=== PATIENT | male | born 1950 | race Caucasian/White ===

== ENCOUNTER 2019-01-06 01:51 | Emergency (ER) | payer MEDICARE, OTHER ==
[~2019-01-06] VITALS: Ht 167.6 cm; Wt 68.0 kg
[~2019-01-06 01:51] MED LIST: HYDR1TAB94; Veetids 500500 MG PO
[2019-01-06] MEDS ORDERED: ACET500 (02:09)
[2019-01-06] MEDS ORDERED: IBUP400 PO (02:09)
[2019-01-06] MEDS ORDERED: GABA300 PO (02:10)
[2019-01-06 03:16] LABS: BASOPHILS ABSOLUTE AUTO 0.04 K/mm3 (0.00-0.23); BASOPHILS PERCENT AUTO 0 % (0-2); EOSINOPHILS PERCENT AUTO 1 % (0-6); Hematocrit 32.9 % (37.0-53.0); IMMATURE GRAN ABSOLUTE AUTO 0.05 K/mm3 (0.00-0.10); IMMATURE GRAN PERCENT AUTO 0 % (0-1); LYMPHOCYTES ABSOLUTE AUTO 0.83 K/mm3 (0.84-5.20); LYMPHOCYTES PERCENT AUTO 7 % (21-46); MONOCYTES ABSOLUTE AUTO 0.82 K/mm3 (0.16-1.47); MONOCYTES PERCENT AUTO 7 % (4-13); Mean Corpuscular HGB 31.4 pg (26.0-34.0); Mean Corpuscular HGB Conc 33.4 g/dL (31.5-36.5); Mean Corpuscular Volume 94 fL (80-100); Mean Platelet Volume 11.9 fL (9.1-12.4); NEUTROPHILS ABSOLUTE AUTO 10.48 K/mm3 (1.96-9.15); NEUTROPHILS PERCENT AUTO 85 % (41-73); Platelet Count 213 K/mm3 (150-400); RDW Coefficient Variation 12.3 % (11.7-14.2); RDW Standard Deviation 42.6 fL (35.1-46.3); White Blood Cell Count 12.32 K/mm3 (4.00-11.30)
[2019-01-06 03:19] LABS: Influenza A Negative (NEGATIVE); Influenza B Negative (NEGATIVE)
[2019-01-06 03:36] LABS: Alanine Aminotransfer (ALT/SGP 34 U/L (12-78); Albumin, Blood 3.9 g/dL (3.4-5.0); Alk Phos 73 U/L (50-136); Anion Gap 9 mmol/L (6-16); Aspartate Aminotrans (AST/SGOT 30 U/L (12-37); Bilirubin, Total 0.5 mg/dL (0.1-1.0); Blood Urea Nitrogen 24 mg/dL (8-24); Bun/Creatinine Ratio 20.5 (12.0-20.0); CO2, Blood 22 mmol/L (21-32); Calcium, Blood 8.6 mg/dL (8.5-10.1); Chloride, Blood 108 mmol/L (98-108); Creatinine, Blood 1.17 mg/dL (0.60-1.20); Globulin, Blood 4.1 g/dL (2.2-4.0); Glomerular Filtration Rate >60 (60-); Glucose, Blood 114 mg/dL (70-99); Potassium, Blood 3.5 mmol/L (3.5-5.5); Sodium, Blood 139 mmol/L (136-145); Troponin I <0.015 ng/mL (0.000-0.040)
[2019-01-06] MEDS ORDERED: Doxycycline Hy100 MG PO (03:41)
== END 2019-01-06 04:15 | disposition home or self-care (01) ==
LOC: ER 01:51
PROVIDERS: Emergency Medicine
DX: J18.9 Pneumonia, unspecified organism (principal); Z88.8 Allergy status to other drugs, medicaments and biological substances; Z79.899 Other long term (current) drug therapy
CPT/HCPCS: 36415; 71046; 80053; 84484; 85025; 87804; 93005; 93010; 94640; 96360; 99284-25; J7030

== ENCOUNTER → 2022-12-12 | Outpatient (CLI) | payer MEDICARE ==
[~2022-12-12] MED LIST changes: +ACET500; +Doxycycline Hy100 MG PO; +GABA300 PO; +IBUP400 PO
== END | disposition home or self-care (01) ==
LOC: LAB SHORT 15:26 → LAB 15:26
DX: L01.01 Non-bullous impetigo (principal)
CPT/HCPCS: 87070; 87077; 87186; 87205

== ENCOUNTER → 2023-03-16 | Outpatient (CLI) | payer MEDICARE ==
[2023-03-16 18:54] LABS: BASOPHILS PERCENT AUTO 1 % (0-2); EOSINOPHILS ABSOLUTE AUTO 2.13 K/mm3 (0.00-0.68); EOSINOPHILS PERCENT AUTO 24 % (0-6); Hematocrit 33.9 % (37.0-53.0); Hemoglobin 11.5 g/dL (13.5-17.5); IMMATURE GRAN ABSOLUTE AUTO 0.02 K/mm3 (0.00-0.10); IMMATURE GRAN PERCENT AUTO 0 % (0-1); LYMPHOCYTES ABSOLUTE AUTO 1.52 K/mm3 (0.84-5.20); LYMPHOCYTES PERCENT AUTO 17 % (21-46); MONOCYTES ABSOLUTE AUTO 0.46 K/mm3 (0.16-1.47); MONOCYTES PERCENT AUTO 5 % (4-13); Mean Corpuscular HGB 31.8 pg (26.0-34.0); Mean Corpuscular HGB Conc 33.9 g/dL (31.5-36.5); Mean Corpuscular Volume 94 fL (80-100); Mean Platelet Volume 12.7 fL (9.1-12.4); NEUTROPHILS PERCENT AUTO 52 % (41-73); Platelet Count 213 K/mm3 (150-400); RDW Standard Deviation 41.1 fL (35.1-46.3); Red Blood Cell Count 3.62 M/mm3 (4.30-5.90); White Blood Cell Count 8.83 K/mm3 (4.00-11.30)
[2023-03-16 18:56] LABS: Alanine Aminotransfer (ALT/SGP 40 U/L (12-78); Albumin, Blood 4.1 g/dL (3.4-5.0); Albumin/Globulin Ratio 1.2 (0.8-1.8); Alk Phos 65 U/L (50-136); Anion Gap 6 mmol/L (6-16); Aspartate Aminotrans (AST/SGOT 33 U/L (12-37); Bilirubin, Total 0.3 mg/dL (0.1-1.0); Blood Urea Nitrogen 24 mg/dL (8-24); Bun/Creatinine Ratio 18.3 (12.0-20.0); CHOL/HDL RATIO 2.2; CO2, Blood 24 mmol/L (21-32); Calcium, Blood 9.4 mg/dL (8.5-10.1); Chloride, Blood 110 mmol/L (98-108); Cholesterol 186 mg/dL (50-200); Creatinine, Blood 1.31 mg/dL (0.60-1.20); Globulin, Blood 3.3 g/dL (2.2-4.0); Glomerular Filtration Rate 58 (60-); Glucose, Blood 97 mg/dL (70-99); HDL Cholesterol 83 mg/dL (>39); LDL/HDL RATIO 1.1; Low Density Lipoprotein Chol 92 mg/dL (0-110); Sodium, Blood 140 mmol/L (136-145); Total Protein, Blood 7.4 g/dL (6.4-8.2); Triglycerides 55 mg/dL (30-160); Very Low Density Lipoprot Chol 11 mg/dL (6-32)
== END | disposition home or self-care (01) ==
LOC: LAB SHORT 17:25 → LAB 17:25
PROVIDERS: Nurse Practitioner Family
DX: Z12.5 Encounter for screening for malignant neoplasm of prostate (principal); E78.5 Hyperlipidemia, unspecified; D64.9 Anemia, unspecified; R39.11 Hesitancy of micturition
CPT/HCPCS: 80053; 80061; 85025; G0103

== ENCOUNTER → 2023-04-19 | Outpatient (CLI) | payer MEDICARE ==
[2023-04-19 19:35] LABS: Percent Saturation 19.2 % (20.0-50.0)
== END ==
LOC: LAB 16:04 → LAB SHORT 16:04
PROVIDERS: Nurse Practitioner Family
DX: D64.9 Anemia, unspecified (principal)
CPT/HCPCS: 82728; 83540; 83550

== ENCOUNTER 2024-03-18 05:55 | Emergency (ER) | payer MEDICARE ==
[~2024-03-18] VITALS: Ht 167.6 cm; Wt 70.3 kg
[~2024-03-18 05:55] MED LIST changes: -ACET500; +ACET500 PO
[2024-03-18] MEDS ORDERED: HYDROCODONE-AC1 EA19 PO (06:20)
[2024-03-18] MEDS ORDERED: ATOR10 (06:20)
[2024-03-18] MEDS ORDERED: Ketorolac Tromethamine 30mg Vial IM ONE (06:45)
[2024-03-18] MEDS ORDERED: Amoxicillin 500 MG Cap PO ONE (07:25)
[2024-03-18] MEDS ORDERED: AMOX500 PO (07:28)
[2024-03-18 07:45] VITALS: BP 127/62
== END 2024-03-18 08:00 | disposition home or self-care (01) ==
LOC: ER 05:55
DX: J18.9 Pneumonia, unspecified organism (principal); Z79.899 Other long term (current) drug therapy; Z88.8 Allergy status to other drugs, medicaments and biological substances
CPT/HCPCS: 71046; 93005; 93010; 96372; 99283-25; A9270; J1885

== ENCOUNTER 2024-03-20 06:32 | Emergency (ER) | payer MEDICARE ==
[~2024-03-20] VITALS: Ht 165.1 cm; Wt 59.0 kg
[~2024-03-20 06:32] MED LIST changes: +AMOX500 PO; +ATOR10; +HYDROCODONE-AC1 EA19 PO
[2024-03-20 08:54] LABS: BASOPHILS ABSOLUTE AUTO 0.07 K/mm3 (0.00-0.23); BASOPHILS PERCENT AUTO 0 % (0-2); EOSINOPHILS ABSOLUTE AUTO 0.07 K/mm3 (0.00-0.68); EOSINOPHILS PERCENT AUTO 0 % (0-6); Hemoglobin 11.5 g/dL (13.5-17.5); IMMATURE GRAN ABSOLUTE AUTO 0.05 K/mm3 (0.00-0.10); IMMATURE GRAN PERCENT AUTO 0 % (0-1); LYMPHOCYTES ABSOLUTE AUTO 0.48 K/mm3 (0.84-5.20); LYMPHOCYTES PERCENT AUTO 3 % (21-46); MONOCYTES ABSOLUTE AUTO 0.72 K/mm3 (0.16-1.47); MONOCYTES PERCENT AUTO 5 % (4-13); Mean Corpuscular HGB 31.9 pg (26.0-34.0); Mean Corpuscular HGB Conc 33.8 g/dL (31.5-36.5); Mean Corpuscular Volume 94 fL (80-100); Mean Platelet Volume 12.1 fL (9.1-12.4); NEUTROPHILS ABSOLUTE AUTO 14.19 K/mm3 (1.96-9.15); NEUTROPHILS PERCENT AUTO 91 % (41-73); Platelet Count 214 K/mm3 (150-400); RDW Coefficient Variation 12.6 % (11.7-14.2); RDW Standard Deviation 43.6 fL (35.1-46.3); White Blood Cell Count 15.58 K/mm3 (4.00-11.30)
[2024-03-20] MEDS ORDERED: Acetaminophen 500 MG Tab PO ONE (08:55)
[2024-03-20] MEDS ORDERED: Amoxicillin 500 MG Cap PO ONE (08:55)
[2024-03-20 09:13] LABS: BAND PERCENT MAN 8 % (0-8); BASOPHILS PERCENT MAN 0 % (0-2); EOSINOPHILS PERCENT MAN 0 % (0-6); LYMPHOCYTES ABSOLUTE MAN 0.15 K/mm3 (0.84-5.20); LYMPHOCYTES PERCENT MAN 1 % (21-46); MONOCYTES ABSOLUTE MAN 0.46 K/mm3 (0.16-1.47); MONOCYTES PERCENT MAN 3 % (4-13); NEUTROPHILS ABSOLUTE MAN 14.95 K/mm3 (1.96-9.15); SEG NEUTROPHILS PERCENT MAN 88 % (41-73); TOTAL CELLS COUNTED 100
[2024-03-20 09:25] LABS: Albumin, Blood 2.9 g/dL (3.4-5.0); Albumin/Globulin Ratio 0.6 (0.8-1.8); Bilirubin, Total 0.6 mg/dL (0.1-1.0); Bun/Creatinine Ratio 17.4 (12.0-20.0); Calcium, Blood 9.2 mg/dL (8.5-10.1); Creatinine, Blood 1.38 mg/dL (0.60-1.20); Globulin, Blood 4.6 g/dL (2.2-4.0); Potassium, Blood 4.3 mmol/L (3.5-5.5); Total Protein, Blood 7.5 g/dL (6.4-8.2)
[2024-03-20] MEDS ORDERED: Zithromax250 MG PO (10:58)
[2024-03-20] MEDS ORDERED: AMOCLA875 PO (10:58)
[2024-03-20] MEDS ORDERED: Azithromycin 250 MG Tab PO ONE (11:00)
[2024-03-20 11:10] VITALS: BP 121/59
== END 2024-03-20 11:13 | disposition home or self-care (01) ==
LOC: ER 06:32
PROVIDERS: Physician Assistant
DX: J18.9 Pneumonia, unspecified organism (principal); Z79.899 Other long term (current) drug therapy; Z88.8 Allergy status to other drugs, medicaments and biological substances
CPT/HCPCS: 71046; 80053; 85025; 99283-25; A9270

== ENCOUNTER 2024-03-22 05:27 | Inpatient (IN) | payer MEDICARE ==
[~2024-03-22] VITALS: Ht 165.1 cm; Wt 60.5 kg
[~2024-03-22 05:27] MED LIST changes: +AMOCLA875 PO; +Zithromax250 MG PO
[2024-03-22] MEDS ORDERED: Ondansetron HCl 2 MG / ML 2ML Vial IV ONE (07:20)
[2024-03-22] MEDS ORDERED: NS 500 ML IV SCH (07:20)
[2024-03-22] MEDS ORDERED: Acetaminophen 500 MG Tab PO ONE (07:20)
[2024-03-22 07:23] LABS: BASOPHILS ABSOLUTE AUTO 0.05 K/mm3 (0.00-0.23); BASOPHILS PERCENT AUTO 0 % (0-2); EOSINOPHILS ABSOLUTE AUTO 0.13 K/mm3 (0.00-0.68); EOSINOPHILS PERCENT AUTO 1 % (0-6); Hematocrit 31.9 % (37.0-53.0); Hemoglobin 10.9 g/dL (13.5-17.5); IMMATURE GRAN ABSOLUTE AUTO 0.12 K/mm3 (0.00-0.10); IMMATURE GRAN PERCENT AUTO 1 % (0-1); LYMPHOCYTES ABSOLUTE AUTO 0.78 K/mm3 (0.84-5.20); LYMPHOCYTES PERCENT AUTO 5 % (21-46); MONOCYTES ABSOLUTE AUTO 1.03 K/mm3 (0.16-1.47); MONOCYTES PERCENT AUTO 6 % (4-13); Mean Corpuscular HGB 31.9 pg (26.0-34.0); Mean Corpuscular HGB Conc 34.2 g/dL (31.5-36.5); Mean Corpuscular Volume 93 fL (80-100); Mean Platelet Volume 11.8 fL (9.1-12.4); NEUTROPHILS ABSOLUTE AUTO 15.36 K/mm3 (1.96-9.15); NEUTROPHILS PERCENT AUTO 88 % (41-73); Platelet Count 262 K/mm3 (150-400); RDW Coefficient Variation 13.4 % (11.7-14.2); Red Blood Cell Count 3.42 M/mm3 (4.30-5.90); White Blood Cell Count 17.47 K/mm3 (4.00-11.30)
[2024-03-22] MEDS ORDERED: Azithromycin 500 MG in NS 250 ML IV ONE (07:35)
[2024-03-22] MEDS ORDERED: CefTRIAXone Sodium 1,000 MG in NS 50 ML IV ONE (07:35)
[2024-03-22 07:38] LABS: Albumin, Blood 2.5 g/dL (3.4-5.0); Albumin/Globulin Ratio 0.5 (0.8-1.8); Bilirubin, Total 0.5 mg/dL (0.1-1.0); Bun/Creatinine Ratio 19.3 (12.0-20.0); Calcium, Blood 9.1 mg/dL (8.5-10.1); Creatinine, Blood 1.35 mg/dL (0.60-1.20); Globulin, Blood 4.9 g/dL (2.2-4.0); Potassium, Blood 3.7 mmol/L (3.5-5.5); Total Protein, Blood 7.4 g/dL (6.4-8.2)
[2024-03-22] MEDS ORDERED: HydrALAZINE HCl 20 MG / ML 1ML Vial IV PRN (08:05)
[2024-03-22] MEDS ORDERED: Acetaminophen 325 MG TABLET PO PRN (08:05)
[2024-03-22 09:00] VITALS: BP 120/70
[2024-03-22] MEDS ORDERED: Atorvastatin 10 MG Tab PO SCH (09:00)
[2024-03-22] MEDS ORDERED: Lactobacil 2-S.Thermo-Bifido 1 1 Cap PO SCH (09:00)
[2024-03-22] MEDS ORDERED: DiphenhydrAMINE HCL 25 MG Cap PO PRN (09:45)
[2024-03-22 16:01] VITALS: BP 127/57
--- NOTE | 2024-03-22 17:52 | NUR ---
SHIFT SUMMARY PT A&OX4, AMB IND, TOLERATNG PO, VOIDING, AND DENIED PAIN. PT TEMP ELEVATED, MEDICATED W/ TYLENOL AND TEMP IMPROVED. CALL LIGHT WITHIN REACH AND PT ABLE TO MAKE NEEDS KNOWN.
[2024-03-22 20:46] VITALS: BP 139/64
[2024-03-22] MEDS ORDERED: Famotidine 20 MG Tab PO SCH (21:00)
[2024-03-22] MEDS ORDERED: Magnesium Hydroxide Conc 10 ML UDC PO PRN (21:30)
[2024-03-22] MEDS ORDERED: LORazepam 0.5 MG Tab PO ONE (21:30)
[2024-03-22] MEDS ORDERED: HYDROcodone 5-APAP 325 TAB PO PRN (21:30)
[2024-03-22] MEDS ORDERED: Benzonatate 100 MG Cap PO PRN (21:30)
[2024-03-22] MEDS ORDERED: Bisacodyl 10 MG Supp PR PRN (21:30)
[2024-03-22] MEDS ORDERED: Docusate Sodium 100 MG UDC PO ONE (22:00)
[2024-03-23 04:46] VITALS: BP 147/53
[2024-03-23 04:47] LABS: Hematocrit 26.6 % (37.0-53.0); Mean Corpuscular HGB 31.6 pg (26.0-34.0); Mean Corpuscular HGB Conc 33.8 g/dL (31.5-36.5); Mean Corpuscular Volume 93 fL (80-100); Mean Platelet Volume 11.3 fL (9.1-12.4); Platelet Count 241 K/mm3 (150-400); RDW Coefficient Variation 13.6 % (11.7-14.2); RDW Standard Deviation 46.8 fL (35.1-46.3); Red Blood Cell Count 2.85 M/mm3 (4.30-5.90); White Blood Cell Count 13.19 K/mm3 (4.00-11.30)
[2024-03-23 05:45] LABS: Bun/Creatinine Ratio 17.5 (12.0-20.0); Calcium, Blood 8.3 mg/dL (8.5-10.1); Creatinine, Blood 1.37 mg/dL (0.60-1.20); Potassium, Blood 4.1 mmol/L (3.5-5.5)
[2024-03-23 07:40] VITALS: BP 135/54
[2024-03-23] MEDS ORDERED: NS 250 ML IV PRN (08:30)
[2024-03-23] MEDS ORDERED: Azithromycin 500 MG in NS 250 ML IV SCH (09:00)
[2024-03-23] MEDS ORDERED: Enoxaparin 40 MG/0.4 ML SYR SC SCH (09:00)
[2024-03-23] MEDS ORDERED: Sennosides 8.6 MG Tab PO SCH (09:00)
[2024-03-23] MEDS ORDERED: CefTRIAXone Sodium 1,000 MG in NS 100 ML IV SCH (09:00)
[2024-03-23] MEDS ORDERED: Docusate Sodium 100 MG Cap PO SCH (09:00)
[2024-03-23] MEDS ORDERED: Albuterol 2.5 MG/3 ML VIAL INH PRN (11:20)
[2024-03-23 12:21] LABS: Adenovirus Not Detected (NOT DETECT); Bordetella pertussis Not Detected (NOT DETECT); Chlamydophila pneumoniae Not Detected (NOT DETECT); Coronavirus 229E Not Detected (NOT DETECT); Coronavirus HKU1 Not Detected (NOT DETECT); Coronavirus NL63 Not Detected (NOT DETECT); Coronavirus OC43 Not Detected (NOT DETECT); Human Metapneumovirus Not Detected (NOT DETECT); Human Rhinovirus/Enterovirus Not Detected (NOT DETECT); Influenza A/2009-H1 Not Detected (NOT DETECT); Influenza A/H1 Not Detected (NOT DETECT); Influenza A/H3 Not Detected (NOT DETECT); Influenza B Not Detected (NOT DETECT); Mycoplasma pneumoniae Not Detected (NOT DETECT); Parainfluenza Virus 1 Not Detected (NOT DETECT); Parainfluenza Virus 2 Not Detected (NOT DETECT); Parainfluenza Virus 3 Not Detected (NOT DETECT); Parainfluenza Virus 4 Not Detected (NOT DETECT); Respiratory Syncytial Virus Not Detected (NOT DETECT); SARS-Cov-2 (COVID-19), BioFire Detected (NOT DETECT)
[2024-03-23 15:24] VITALS: BP 126/59
--- NOTE | 2024-03-23 18:20 | NUR ---
SHIFT SUMMARY PT POSITIVE COVID LAB THIS SHIFT AND PLACED IN ISOLATION. PT CONT TO C/O COUGH AND PAIN THAT WAS MEDICATED PER THE EMAR. PT WORKED W/ PHYSICAL THERAPY, SEE THERAPY NOTE. NO OTHER ACUTE CHANGES. CALL LIGHT WTIHIN REACH AND PT ABLE TO MAKE NEEDS KNOWN.
[2024-03-23 20:18] VITALS: BP 139/65
[2024-03-23] MEDS ORDERED: GuaiFENesin 600 MG TabCR PO SCH (21:00)
--- NOTE | 2024-03-24 05:39 | NUR ---
SHIFT SUMMARY PT A&OX4 AND ANSWERS QUESTIONS APPROPRIATELY. PT EXPRESSES SADNESS REGARDING THE RECENT OF . THERAPEUTIC COMMUNICATION UTILIZED TO ASSIST WITH THE GRIEVING PROCESS. MEDICATED PER EMAR. PT RECEIVED BREATHING TREATMENTS PRN. VSS, NO COMPLAINTS OF CP/PRESSURE. PT REPOSIIONED INDEPENDENTLY. NO ACUTE EVENTS AT THIS TIME. FALL PRECAUTIONS IN PLACE AND CALL LIGHT IN REACH.
[2024-03-24 05:56] VITALS: BP 87/66
[2024-03-24] MEDS ORDERED: NS 500 ML IV SCH (07:40)
[2024-03-24 07:59] VITALS: BP 142/57
[2024-03-24] MEDS ORDERED: Ondansetron HCl 2 MG / ML 2ML Vial IV PRN (13:00)
[2024-03-24 17:21] VITALS: BP 149/112
--- NOTE | 2024-03-24 18:08 | NUR ---
SHIFT SUMMARY PT RESTING QUIETLY AT START OF SHIFT. UP TO EOB TO USE URINAL INDEPENDENTLY. CALLS FREQUENTLY FOR NEEDS. PT ADMITTED FOR COVID PNM, RECEIVING IV ABX PER EMAR. REQUESTED COUGH MED X1 TO PRESENT THIS SHIFT. C/O NAUSEA THIS AFTERNOON; ZOFRAN OBTAINED AND GIVEN. REQUESTED RT TX ONCE TO PRESENT. NO FURTHER C/O. CALL LT IN REACH.
[2024-03-24 20:24] VITALS: BP 163/67
[2024-03-25 02:48] VITALS: BP 122/58
--- NOTE | 2024-03-25 05:33 | NUR ---
SHIFT SUMMARY PT A&OX4 AND ANSWERS QUESTIONS APPROPRIATELY. PT RECEIVED HS MEDS AND PAIN MEDS PER EMAR. VSS, TEMP ELEVATED AND MEDICATED PER EMAR. REMAINING VSS, NO COMPLAINTS OF CP/PRESSURE OR SOB. NO ACUTE EVENTS AT THIS TIME. PT REPOSITIONED HIMSELF INDEPENDENTLY. FALL PRECAUTIONS IN PLACE AND CALL LIGHT IN REACH.
[2024-03-25 07:32] VITALS: BP 142/55
[2024-03-25] MEDS ORDERED: Piperacillin/Tazobactam Sod 3.375 GM in NS 100 ML IV SCH (08:00)
[2024-03-25] MEDS ORDERED: ATOR40TA PO (15:52)
[2024-03-25] MEDS ORDERED: FEROSUL325 M1 PO (15:57)
[2024-03-25] MEDS ORDERED: CALCIUM CARBON500 M4 PO (15:57)
[2024-03-25] MEDS ORDERED: CENTRUM SILVER1 EAC2 PO (15:57)
[2024-03-25] MEDS ORDERED: IBUP200 PO (15:59)
[2024-03-25 16:28] VITALS: BP 119/47
--- NOTE | 2024-03-25 17:55 | NUR ---
SHIFT SUMMARY PT AWAKE AT START OF SHIFT, WATCHING TV. PT'S TEMP SHOWING AN INCREASE WHEN VS TAKEN THIS AM. ICE BAGS AND THEN TYLENOL GIVEN. IV ABX CHANGED AGAIN AND GIVEN PER EMAR. PT FEELING BETTER THIS AFTERNOON. PT C/O CONSTIPATION; BOWEL CARE GIVEN PER EMAR. PRUNE JUICE AND APPLE JUICE GIVEN WELL. PT NOW WANTING A SUPPOSITORY; TO BE GIVEN AFTER DINNER. THERAPY IN TO SEE PT AND ENCOURAGE AMBULATION. PT IS DOING BETTER TODAY THAN YESTERDAY. TESSALON GIVEN FOR COUGH. PT ABLE TO MAKE NEEDS KNOWN. PT DOES CALL FREQUENTLY FOR NEEDS.
[2024-03-25 19:31] VITALS: BP 125/46
[2024-03-25] MEDS ORDERED: Melatonin 5 MG Tablet PO PRN (20:45)
[2024-03-26 02:50] VITALS: BP 125/55
--- NOTE | 2024-03-26 04:55 | NUR ---
SHIFT SUMMARY THIS RN ASSUMED CARE OF PATIENT AT 1900. PT A&O X4. ABLE TO MAKE NEEDS KNOWN. VSS. ON RA. USING 1-2L VIA NC PRN WHILE SLEEPING. BP STABLE. MEDICATING PER EMAR FOR PAIN AND COUGH PRN. PT USING FWW IN ROOM AND INDEPENDENT TO BATHROOM. CALL PLACED TO MD PRINGLE REGARDING INSOMNIA, WITH ORDER FOR MELATONIN. PT REPORTED ONLY SLEEPING FOR SHORT PERIODS OF TIME. NO ACUTE EVENTS OVERNIGHT. BED IN LOWEST POSITION AND CALL LIGHT WITHIN REACH. THIS RN WILLL REPORT TO ONCOMING DAYSHIFT RN.
[2024-03-26 08:22] VITALS: BP 131/54
[2024-03-26] MEDS ORDERED: Zolpidem Tartrate 5 MG Tab PO PRN (15:00)
[2024-03-26 15:34] VITALS: BP 133/56
--- NOTE | 2024-03-26 17:13 | NUR ---
SHIFT SUMMARY PT CONT LEVEL OF CARE WITH NO ACUTE CHANGES NOTED. PLAN IS TO DC TOMORROW.
[2024-03-26 19:43] VITALS: BP 143/58
[2024-03-27 04:31] VITALS: BP 139/52
[2024-03-27 05:01] LABS: BASOPHILS ABSOLUTE AUTO 0.02 K/mm3 (0.00-0.23); BASOPHILS PERCENT AUTO 0 % (0-2); EOSINOPHILS PERCENT AUTO 1 % (0-6); Hematocrit 26.7 % (37.0-53.0); Hemoglobin 8.9 g/dL (13.5-17.5); IMMATURE GRAN ABSOLUTE AUTO 0.05 K/mm3 (0.00-0.10); IMMATURE GRAN PERCENT AUTO 1 % (0-1); LYMPHOCYTES ABSOLUTE AUTO 0.79 K/mm3 (0.84-5.20); LYMPHOCYTES PERCENT AUTO 9 % (21-46); MONOCYTES ABSOLUTE AUTO 0.47 K/mm3 (0.16-1.47); MONOCYTES PERCENT AUTO 5 % (4-13); Mean Corpuscular HGB 31.4 pg (26.0-34.0); Mean Corpuscular HGB Conc 33.3 g/dL (31.5-36.5); Mean Corpuscular Volume 94 fL (80-100); Mean Platelet Volume 10.2 fL (9.1-12.4); NEUTROPHILS ABSOLUTE AUTO 7.73 K/mm3 (1.96-9.15); NEUTROPHILS PERCENT AUTO 85 % (41-73); Platelet Count 350 K/mm3 (150-400); RDW Coefficient Variation 14.6 % (11.7-14.2); RDW Standard Deviation 51.3 fL (35.1-46.3); Red Blood Cell Count 2.83 M/mm3 (4.30-5.90); White Blood Cell Count 9.16 K/mm3 (4.00-11.30)
[2024-03-27 05:31] LABS: Calcium, Blood 8.2 mg/dL (8.5-10.1); Creatinine, Blood 1.2 mg/dL (0.60-1.20)
--- NOTE | 2024-03-27 05:54 | NUR ---
SUMMARY: PT A/OX4, CALLS APPROPRIATELY TO SPECIFY NEEDS AND IS PLEASANT AND COOPERATIVE W/CARE. HE'S UP AD DESIREE W/FWW AND USED URINAL AT EOB T/O NOCTE. HE'S REMAINS IN ENHANCED ISO FOR COVID PNM AND IV ABX RECEIVED PER EMAR. FINE CRACKLES AUSCULTATED AND RT IS PROVING ALBUTEROL PRN. TESSALON PERLS RECEIVED FOR COUGH. PT HAD LOW GRADE FEVER AND C/O GEN PAIN W/TYLENOL RECEIVED FOR GOOD EFFECT. CATE WAS ALSO PROVIDED PER PT REQUEST FOR SLEEP. HE'S ON 1L O2 PRN FOR COMFORT/SOB AND MANAGES THIS INDEPENDENTLY. NO ACUTE CHANGES, VSS/AFEBRILE. PROBABLE D/C TODAY. WCTM AND REPORT TO DAY RN.
[2024-03-27 08:06] VITALS: BP 124/57
[2024-03-27] MEDS ORDERED: TraZODone HCl 50 MG Tab PO PRN (10:00)
[2024-03-27 15:43] VITALS: BP 133/58
--- NOTE | 2024-03-27 18:58 | NUR ---
SHIFT SUMMARY PT CONT WITH LEVEL OF CARE WITH NO ACUTE CHANGES NOTED. PT CONT TO HAVE GENERLIZED PAIN IMPROVED WITH APAP. COUGH CONT WITH THIN YELLOW SPUTUM NOTED. PLAN IS TO POSSIBLE DC TOMORROW.
[2024-03-27 19:46] VITALS: BP 147/59
--- NOTE | 2024-03-28 06:42 | NUR ---
Shift Summary Pt cont. to have generalized pain and persistant cough. It is somewhat painful when he takes a deep breath and he says it is a little hard to breath. Chest X-Ray from 03/27 shows worsening pnumonia from the x-ray 5 days ago. Pt concerned that he doesn't feel he is getting better.
[2024-03-28 07:36] VITALS: BP 146/51
[2024-03-28] MEDS ORDERED: HyDROXyzine HCl 25 MG Tab PO PRN (10:35)
[2024-03-28] MEDS ORDERED: Loperamide HCl 2 MG Cap PO PRN (10:35)
[2024-03-28 15:18] VITALS: BP 151/75
== END 2024-03-28 17:05 | disposition home or self-care (01) | DRG 871 ==
LOC: ER 05:27 → MEDS 08:13 → ER 08:46 → MEDS 09:21
PROVIDERS: Family Medicine; Student in an Organized Health Care Education/Training Program; ADMIT Internal Medicine
DX: A41.9 Sepsis, unspecified organism (principal); J18.9 Pneumonia, unspecified organism; J96.01 Acute respiratory failure with hypoxia; U07.1 COVID-19; Z66 Do not resuscitate; E78.5 Hyperlipidemia, unspecified; Z98.1 Arthrodesis status
CPT/HCPCS: 0202U; 36415; 71045; 71046; 80048; 80053; 84145; 85025; 85027; 92610; 93005; 93010; 94640; 94664; 94760; 94761; 96374; 97110; 97116; 97161; 97530; 99284-25; A9270; J0456; J0696; J1650; J2405; J2543; J7030; J7050

== ENCOUNTER → 2024-04-01 | Outpatient (CLI) | payer MEDICARE ==
[~2024-04-01] MED LIST changes: +ATOR40TA PO; +CALCIUM CARBON500 M4 PO; +CENTRUM SILVER1 EAC2 PO; +FEROSUL325 M1 PO; +IBUP200 PO
[2024-04-01 13:16] LABS: BASOPHILS ABSOLUTE AUTO 0.08 K/mm3 (0.00-0.23); BASOPHILS PERCENT AUTO 1 % (0-2); EOSINOPHILS ABSOLUTE AUTO 0.18 K/mm3 (0.00-0.68); EOSINOPHILS PERCENT AUTO 2 % (0-6); Hematocrit 33.6 % (37.0-53.0); Hemoglobin 10.7 g/dL (13.5-17.5); IMMATURE GRAN ABSOLUTE AUTO 0.05 K/mm3 (0.00-0.10); IMMATURE GRAN PERCENT AUTO 1 % (0-1); LYMPHOCYTES ABSOLUTE AUTO 0.98 K/mm3 (0.84-5.20); LYMPHOCYTES PERCENT AUTO 10 % (21-46); MONOCYTES ABSOLUTE AUTO 0.59 K/mm3 (0.16-1.47); MONOCYTES PERCENT AUTO 6 % (4-13); Mean Corpuscular HGB 31.4 pg (26.0-34.0); Mean Corpuscular HGB Conc 31.8 g/dL (31.5-36.5); Mean Corpuscular Volume 99 fL (80-100); Mean Platelet Volume 10.6 fL (9.1-12.4); NEUTROPHILS ABSOLUTE AUTO 7.82 K/mm3 (1.96-9.15); NEUTROPHILS PERCENT AUTO 81 % (41-73); Platelet Count 969 K/mm3 (150-400); RDW Standard Deviation 50.6 fL (35.1-46.3); Red Blood Cell Count 3.41 M/mm3 (4.30-5.90)
[2024-04-01 13:24] LABS: Albumin, Blood 2.8 g/dL (3.4-5.0); Albumin/Globulin Ratio 0.5 (0.8-1.8); Bilirubin, Total 0.4 mg/dL (0.1-1.0); Bun/Creatinine Ratio 14.9 (12.0-20.0); Calcium, Blood 9.3 mg/dL (8.5-10.1); Creatinine, Blood 1.14 mg/dL (0.60-1.20); Globulin, Blood 5.1 g/dL (2.2-4.0); Potassium, Blood 4.6 mmol/L (3.5-5.5); Total Protein, Blood 7.9 g/dL (6.4-8.2)
== END ==
LOC: LAB 12:04 → LAB SHORT 12:04
PROVIDERS: Nurse Practitioner Family
DX: D64.9 Anemia, unspecified (principal)
CPT/HCPCS: 80053; 85025

== ENCOUNTER → 2024-04-29 | Outpatient (CLI) | payer MEDICARE ==
[2024-04-29 14:36] LABS: BASOPHILS ABSOLUTE AUTO 0.06 K/mm3 (0.00-0.23); BASOPHILS PERCENT AUTO 1 % (0-2); EOSINOPHILS ABSOLUTE AUTO 0.18 K/mm3 (0.00-0.68); EOSINOPHILS PERCENT AUTO 3 % (0-6); Hematocrit 35.4 % (37.0-53.0); Hemoglobin 11.5 g/dL (13.5-17.5); IMMATURE GRAN ABSOLUTE AUTO 0.02 K/mm3 (0.00-0.10); IMMATURE GRAN PERCENT AUTO 0 % (0-1); LYMPHOCYTES ABSOLUTE AUTO 1.17 K/mm3 (0.84-5.20); LYMPHOCYTES PERCENT AUTO 16 % (21-46); MONOCYTES ABSOLUTE AUTO 0.44 K/mm3 (0.16-1.47); MONOCYTES PERCENT AUTO 6 % (4-13); Mean Corpuscular HGB 31.4 pg (26.0-34.0); Mean Corpuscular HGB Conc 32.5 g/dL (31.5-36.5); Mean Corpuscular Volume 97 fL (80-100); Mean Platelet Volume 11.7 fL (9.1-12.4); NEUTROPHILS PERCENT AUTO 74 % (41-73); Platelet Count 310 K/mm3 (150-400); RDW Coefficient Variation 12.6 % (11.7-14.2); RDW Standard Deviation 44.8 fL (35.1-46.3); Red Blood Cell Count 3.66 M/mm3 (4.30-5.90); White Blood Cell Count 7.27 K/mm3 (4.00-11.30)
[2024-04-29 14:42] LABS: Albumin, Blood 3.3 g/dL (3.4-5.0); Albumin/Globulin Ratio 0.8 (0.8-1.8); Bilirubin, Total 0.5 mg/dL (0.1-1.0); Bun/Creatinine Ratio 15.4 (12.0-20.0); Calcium, Blood 9.5 mg/dL (8.5-10.1); Creatinine, Blood 1.04 mg/dL (0.60-1.20); Globulin, Blood 4.4 g/dL (2.2-4.0); Potassium, Blood 4.2 mmol/L (3.5-5.5); Total Protein, Blood 7.7 g/dL (6.4-8.2)
== END | disposition home or self-care (01) ==
LOC: LAB 12:00 → LAB SHORT 12:00
PROVIDERS: Nurse Practitioner Family
DX: J12.81 Pneumonia due to SARS-associated coronavirus (principal)
CPT/HCPCS: 80053; 85025

== ENCOUNTER 2024-10-07 16:18 | Emergency (ER) | payer MEDICARE ==
[~2024-10-07] VITALS: Ht 165.1 cm; Wt 57.1 kg
[2024-10-07 16:38] VITALS: BP 179/80
[2024-10-07 17:26] LABS: CORONAVIRUS COVID-19 AG Negative (NEGATIVE); INFLUENZA A AG Negative (NEGATIVE); INFLUENZA B AG Negative (NEGATIVE)
[2024-10-07] MEDS ORDERED: AMOCLA875 PO (17:53)
[2024-10-07] MEDS ORDERED: Amoxicillin/Clavulanate K 875 MG Tab PO ONE (17:55)
== END 2024-10-07 18:15 | disposition home or self-care (01) ==
LOC: ER 16:18
PROVIDERS: Student in an Organized Health Care Education/Training Program
DX: J18.9 Pneumonia, unspecified organism (principal); E78.5 Hyperlipidemia, unspecified; Z87.01 Personal history of pneumonia (recurrent); Z88.1 Allergy status to other antibiotic agents; Z79.899 Other long term (current) drug therapy; Z59.89 Other problems related to housing and economic circumstances
CPT/HCPCS: 71045; 87428-QW; 99283-25; A9270

== ENCOUNTER → 2024-10-31 | Outpatient (CLI) | payer MEDICARE ==
[2024-10-31 17:49] LABS: BASOPHILS ABSOLUTE AUTO 0.06 K/mm3 (0.00-0.23); BASOPHILS PERCENT AUTO 1 % (0-2); EOSINOPHILS ABSOLUTE AUTO 0.24 K/mm3 (0.00-0.68); EOSINOPHILS PERCENT AUTO 3 % (0-6); Hematocrit 33.9 % (37.0-53.0); Hemoglobin 11.2 g/dL (13.5-17.5); IMMATURE GRAN ABSOLUTE AUTO 0.01 K/mm3 (0.00-0.10); IMMATURE GRAN PERCENT AUTO 0 % (0-1); LYMPHOCYTES ABSOLUTE AUTO 1.19 K/mm3 (0.84-5.20); LYMPHOCYTES PERCENT AUTO 15 % (21-46); MONOCYTES ABSOLUTE AUTO 0.51 K/mm3 (0.16-1.47); MONOCYTES PERCENT AUTO 6 % (4-13); Mean Corpuscular HGB 31.6 pg (26.0-34.0); Mean Corpuscular Volume 96 fL (80-100); Mean Platelet Volume 12.7 fL (9.1-12.4); NEUTROPHILS ABSOLUTE AUTO 6.19 K/mm3 (1.96-9.15); NEUTROPHILS PERCENT AUTO 76 % (41-73); Platelet Count 251 K/mm3 (150-400); RDW Coefficient Variation 13.1 % (11.7-14.2); RDW Standard Deviation 46.9 fL (35.1-46.3); Red Blood Cell Count 3.54 M/mm3 (4.30-5.90)
[2024-10-31 18:16] LABS: Albumin, Blood 3.6 g/dL (3.4-5.0); Albumin/Globulin Ratio 0.9 (0.8-1.8); Bilirubin, Total 0.3 mg/dL (0.1-1.0); Bun/Creatinine Ratio 18.4 (12.0-20.0); Calcium, Blood 9.3 mg/dL (8.5-10.1); Creatinine, Blood 1.14 mg/dL (0.60-1.20); Globulin, Blood 3.8 g/dL (2.2-4.0); Potassium, Blood 3.9 mmol/L (3.5-5.5); Thyroid Stimulating Hormone 1.63 uIU/mL (0.360-4.800); Total Protein, Blood 7.4 g/dL (6.4-8.2)
== END ==
LOC: LAB 17:01 → LAB SHORT 17:01
PROVIDERS: Nurse Practitioner Family
DX: R53.81 Other malaise (principal)
CPT/HCPCS: 80053; 84443; 85025

== ENCOUNTER 2025-06-27 17:35 | Emergency (ER) | payer OTHER ==
[~2025-06-27] VITALS: Ht 165.1 cm; Wt 65.8 kg
[~2025-06-27 17:35] MED LIST changes: +Percocet 5-3251 EACH PO
[2025-06-27] MEDS ORDERED: HYDR1TAB94 PO (17:42)
[2025-06-27] MEDS ORDERED: Polyethylene Glycol 3350 17 gm PO ONE (18:10)
[2025-06-27] MEDS ORDERED: FentaNYL Citrate 50 MCG/ML 2 ML Injection IM ONE ×2 (18:15→19:50)
[2025-06-27] MEDS ORDERED: HYDROCODONE-AC1 EA10 PO (20:14)
[2025-06-27 20:19] VITALS: BP 186/74
[2025-06-28] MEDS ORDERED: PRED20 PO (11:55)
== END 2025-06-27 20:26 | disposition home or self-care (01) ==
LOC: ER 17:35
DX: M25.552 Pain in left hip (principal); G89.29 Other chronic pain; E78.5 Hyperlipidemia, unspecified; Z79.899 Other long term (current) drug therapy; Z59.89 Other problems related to housing and economic circumstances
CPT/HCPCS: 96372; 99283-25; J3010

== ENCOUNTER 2025-06-28 07:36 | Emergency (ER) | payer OTHER ==
[~2025-06-28] VITALS: Ht 165.1 cm; Wt 66.2 kg
[~2025-06-28 07:36] MED LIST changes: +HYDR1TAB94 PO; +HYDROCODONE-AC1 EA10 PO
[2025-06-28] MEDS ORDERED: Ketorolac Tromethamine 15mg Vial IM ONE (10:10)
[2025-06-28] MEDS ORDERED: PRED20 PO (11:55)
[2025-06-28 12:45] VITALS: BP 159/72
== END 2025-06-28 13:08 | disposition home or self-care (01) ==
LOC: ER 07:36
DX: M54.32 Sciatica, left side (principal); Z79.899 Other long term (current) drug therapy; E78.5 Hyperlipidemia, unspecified
CPT/HCPCS: 72192; 73502; 96372; 99283-25; J1885

== ENCOUNTER 2025-07-06 12:29 | Day surgery (SDC) | payer OTHER ==
[~2025-07-06] VITALS: Ht 162.6 cm; Wt 63.9 kg
[2025-07-06] VITALS (20 sets, daily range): BP systolic 154–181; BP diastolic 62–84
[~2025-07-06 12:29] MED LIST changes: +PRED20 PO
--- NOTE | 2025-07-06 14:58 | NUR ---
07/06/25 1458 Adrienne Nobles ISOVUE-M 300 INJECTED AT [facility] BY DR. LAUREN DURING PROCEDURE.
--- NOTE | 2025-07-06 15:00 | NUR ---
PT TO STEP POST RAMAN. STATES PAIN LEVEL 3/10 TO LOWER BACK. DENIES NUMBNESS OR TINGLING TO LETS. DENEIS HEADACHE. WRITTEN AND VERBLA D/CI INSTUCTIONS GIVEN TO PT WITH VERBALIZED UNDERSTANDING. LAYING IN [place] ON BACK FOR 30 MINUTES PRIOR TO D/C PER DR. LAUREN VERBAL INSTUCTIONS.
--- NOTE | 2025-07-06 15:24 | NUR ---
PT TO STANDING AND GETTING DRESSED. CONTINUES TO DENIE NUMBNESS OR WEAKNESS TO LEGS. BANDAID TO BACK C/D/I.
--- NOTE | 2025-07-06 15:31 | NUR ---
PATIENT WAITING FOR RIDE. REPORT GIVEN TO DAYNA CRAWFORD RN.
--- NOTE | 2025-07-06 16:08 | NUR ---
Discharge instructions reviewed with patient. Patient verbalizes understanding. Copy given to patient to take home. Bandage c/d/i. Patient States Post-Procedure ride home has been arranged. Discharged via wheelchair to private car for ride home.
== END 2025-07-06 15:39 | disposition home or self-care (01) ==
LOC: ORSCSDS 12:29 → ORSCMMR 12:29 → ORD 13:00 → ORSCSDS 14:00
PROVIDERS: Orthopaedic Surgery
PROC: 3E0R33Z Introduction of Anti-inflammatory into Spinal Canal, Percutaneous Approach (ICD-10-PCS; principal; 2025-07-06 14:00)
DX: M48.062 Spinal stenosis, lumbar region with neurogenic claudication (principal); M47.26 Other spondylosis with radiculopathy, lumbar region; E78.5 Hyperlipidemia, unspecified; G89.29 Other chronic pain; Z79.899 Other long term (current) drug therapy
CPT/HCPCS: J1010